=== PATIENT | male | born 1990 | race Caucasian/White ===

== ENCOUNTER 2016-08-19 15:10 | Emergency (ER) | payer MEDICAID ==
[2016-08-19 18:00] VITALS: BP 129/74
== END 2016-08-19 18:26 | disposition home or self-care (01) ==
LOC: ED 15:10
DX: S61.217A Laceration without foreign body of left little finger without damage to nail, initial encounter (principal); X58.XXXA Exposure to other specified factors, initial encounter; Y93.89 Activity, other specified; Y92.89 Other specified places as the place of occurrence of the external cause; Y99.8 Other external cause status

== ENCOUNTER 2016-10-14 17:34 | Emergency (ER) | payer SELFPAY ==
[~2016-10-14] VITALS: Ht 167.6 cm; Wt 68.9 kg
[2016-10-14 17:58] VITALS: BP 143/64
== END 2016-10-14 19:30 | disposition home or self-care (01) ==
LOC: ED 17:34
DX: L98.499 Non-pressure chronic ulcer of skin of other sites with unspecified severity (principal)

== ENCOUNTER 2018-08-31 15:06 | Emergency (ER) | payer SELFPAY ==
[~2018-08-31] VITALS: Ht 162.6 cm; Wt 73.5 kg
[2018-08-31 15:22] VITALS: BP 130/94; Ht 162.6 cm; Wt 73.5 kg
== END 2018-08-31 15:56 | disposition home or self-care (01) ==
LOC: ED 15:06
DX: K13.0 Diseases of lips (principal)

== ENCOUNTER 2018-09-10 21:43 | Emergency (ER) | payer SELFPAY, OTHER | END 2018-09-10 23:15 | disposition home or self-care (01) | LOC: ED 21:43 ==